=== PATIENT | male | born 1980 | race Caucasian/White ===

== ENCOUNTER 2018-06-02 22:28 | Emergency (ER) | payer MEDICAID ==
[~2018-06-02] VITALS: Ht 182.9 cm; Wt 83.9 kg
[2018-06-02 22:32] VITALS: BP_SYST 130
[2018-06-02] MEDS ORDERED: IBUPROFEN 800 MG TABLET PO ONE (23:00)
[2018-06-02 23:28] VITALS: BP_SYST 127
== END 2018-06-02 23:28 | disposition home or self-care (01) ==
LOC: SED 22:28
DX: S62.634A Displaced fracture of distal phalanx of right ring finger, initial encounter for closed fracture (principal); S62.614A Displaced fracture of proximal phalanx of right ring finger, initial encounter for closed fracture; J45.909 Unspecified asthma, uncomplicated; W21.01XA Struck by football, initial encounter; Y93.61 Activity, american tackle football; Y92.89 Other specified places as the place of occurrence of the external cause; Y99.8 Other external cause status
CPT/HCPCS: 73140-TC; 99284

== ENCOUNTER 2019-04-12 12:03 | Emergency (ER) | payer MEDICAID ==
[~2019-04-12] VITALS: Ht 182.9 cm; Wt 86.2 kg
[2019-04-12 12:16] VITALS: BP_SYST 127
[2019-04-12] MEDS ORDERED: MAG HYDROX/AL HYDROX/SIMETH 30 ML, BELLADONNA ALKALOIDS/PHENOBARB 10 ML, LIDOCAINE VISC... PO ONE ×3 (12:30)
[2019-04-12 12:32] LABS: BASOPHILS % (AUTO) 0.2 % (0.0-2.0); EOSINOPHILS # (AUTO) 0.5 K/uL (0.0-0.4); EOSINOPHILS % (AUTO) 9.3 % (0.0-4.0); HEMOGLOBIN 15.2 g/dL (14.0-18.0); LYMPHOCYTES # (AUTO) 1.5 K/uL (1.0-5.5); LYMPHOCYTES % (AUTO) 25.6 % (20.5-51.5); MEAN CORPUSCULAR HEMOGLOBIN 27 pg (27-31); MEAN CORPUSCULAR HGB CONC 34 % (32-36); MEAN CORPUSCULAR VOLUME 81 fL (79.0-98.0); MONOCYTES # (AUTO) 0.4 K/uL (0.0-1.0); MONOCYTES % (AUTO) 7.4 % (1.7-9.3); NEUTROPHILS # (AUTO) 3.3 K/uL (1.8-7.7); NEUTROPHILS % (AUTO) 57.5 % (40.0-70.0); PLATELET COUNT (AUTO) 189 K/uL (130-430); RED BLOOD CELL COUNT(AUTO) 5.54 MIL/uL (4.2-6.2); RED CELL DISTRIBUTION WIDTH 13.2 % (9.0-15.0); WHITE BLOOD COUNT (AUTO) 5.7 K/uL (4.8-10.8)
[2019-04-12 12:45] LABS: CALCIUM 9.6 mg/dL (8.4-11.0); CREATININE 0.72 mg/dL (0.55-1.30); POTASSIUM 3.8 mmol/L (3.5-5.1)
[2019-04-12 12:51] LABS: ALBUMIN 3.7 g/dL (3.4-4.8); TOTAL BILIRUBIN 0.5 mg/dL (0.0-1.0)
[2019-04-12] MEDS ORDERED: IOHEXOL 100 ML IV ONE (13:38)
[2019-04-12 13:46] LABS: BILIRUBIN,URINE NEGATIVE (NEGATIVE); BLOOD, URINE NEGATIVE (NEGATIVE); CLARITY/URINE CLEAR (CLEAR); COLOR,URINE YELLOW (YELLOW); GLUCOSE,URINE NEGATIVE (NEGATIVE); KETONES,URINE NEGATIVE (NEGATIVE); LEUKOCYTE ESTERASE ,URINE NEGATIVE (NEGATIVE); NITRITE, URINE NEGATIVE (NEGATIVE); PH,URINE 5.5 (5.0-8.0); PROTEIN URINE NEGATIVE (NEGATIVE); UROBILINOGEN,URINE 0.2 (0.2-1.0)
[2019-04-12 15:43] VITALS: BP_SYST 131
== END 2019-04-12 15:43 | disposition home or self-care (01) ==
LOC: SED 12:03
DX: K57.90 Diverticulosis of intestine, part unspecified, without perforation or abscess without bleeding (principal); K59.00 Constipation, unspecified; J45.909 Unspecified asthma, uncomplicated
CPT/HCPCS: 36415; 74021; 74177; 80053; 81003; 83690; 85025; 99284; J2001; Q9967

== ENCOUNTER 2019-09-15 20:02 | Emergency (ER) | payer MEDICAID ==
[~2019-09-15] VITALS: Ht 182.9 cm; Wt 86.2 kg
[2019-09-15 20:13] VITALS: BP_SYST 123
--- NOTE | 2019-09-15 20:30 | NUR ---
Patient to ER bed 5 for evaluation. Side rails up. Report given to Consuelo GILLILAND.
--- NOTE | 2019-09-15 20:40 | NUR ---
Patient AOx4, presents to ED via wheelchair for complaints of right groin pain since today @1400. Patient reports recent varicose vein surgery to right lower leg x1 week ago. Patient states site of pain began when patient was sitting. Patient reports pain as sharp. Medicated with Ibuprofen prior to arrival with minimal relief. No other symptoms or complaints.
[2019-09-15] MEDS ORDERED: POTASSIUM CHLORIDE 20 MEQ/PKT PACKET PO ONE (20:45)
--- NOTE | 2019-09-15 20:55 | NUR ---
Constance lozano in ED - 09/15/19 at 2159 by SDEDBK LAURA York at bedside for medication administration.
--- NOTE | 2019-09-15 20:55 | NUR ---
ER MD York at bedside for medical evaluation.
[2019-09-15] MEDS ORDERED: MORPHINE 4 MG/ML INJ. SYRINGE IM ONE (21:00)
[2019-09-15 21:27] LABS: BASOPHILS % (AUTO) 0.4 % (0.0-2.0); EOSINOPHILS # (AUTO) 0.5 K/uL (0.0-0.4); EOSINOPHILS % (AUTO) 8.4 % (0.0-4.0); HEMATOCRIT 39.2 % (36-54); HEMOGLOBIN 13.5 g/dL (14.0-18.0); LYMPHOCYTES # (AUTO) 2.3 K/uL (1.0-5.5); MEAN CORPUSCULAR HEMOGLOBIN 28 pg (27-31); MEAN CORPUSCULAR HGB CONC 34 % (32-36); MEAN CORPUSCULAR VOLUME 82 fL (79.0-98.0); MONOCYTES # (AUTO) 0.6 K/uL (0.0-1.0); MONOCYTES % (AUTO) 9.5 % (1.7-9.3); NEUTROPHILS % (AUTO) 46.7 % (40.0-70.0); PLATELET COUNT (AUTO) 156 K/uL (130-430); RED BLOOD CELL COUNT(AUTO) 4.79 MIL/uL (4.2-6.2); RED CELL DISTRIBUTION WIDTH 13.1 % (9.0-15.0); WHITE BLOOD COUNT (AUTO) 6.5 K/uL (4.8-10.8)
[2019-09-15 21:39] LABS: CALCIUM 8.5 mg/dL (8.4-11.0); POTASSIUM 3.6 mmol/L (3.5-5.1)
--- NOTE | 2019-09-15 22:00 | NUR ---
No adverse reactions noted after medication administration. Will continue to monitor.
[2019-09-15 23:06] LABS: BILIRUBIN,URINE NEGATIVE (NEGATIVE); BLOOD, URINE NEGATIVE (NEGATIVE); CLARITY/URINE CLEAR (CLEAR); COLOR,URINE YELLOW (YELLOW); GLUCOSE,URINE NEGATIVE (NEGATIVE); KETONES,URINE NEGATIVE (NEGATIVE); LEUKOCYTE ESTERASE ,URINE NEGATIVE (NEGATIVE); NITRITE, URINE NEGATIVE (NEGATIVE); PROTEIN URINE NEGATIVE (NEGATIVE); UROBILINOGEN,URINE 0.2 (0.2-1.0)
[2019-09-15 23:15] VITALS: BP_SYST 122
--- NOTE | 2019-09-15 23:15 | NUR ---
Patient given written and verbal discharge instructions and verbalizes understanding. ER MD discussed with patient the results and treatment provided. Patient in stable condition. ID arm band removed. No Rx given. Patient educated on pain management and to follow up with PMD. Pain Scale 2/10 tolerable to patient. Opportunity for questions provided and answered.
== END 2019-09-15 23:15 | disposition home or self-care (01) ==
LOC: SED 20:02
DX: S30.1XXA Contusion of abdominal wall, initial encounter (principal); J45.909 Unspecified asthma, uncomplicated; X58.XXXA Exposure to other specified factors, initial encounter; Y93.89 Activity, other specified; Y92.89 Other specified places as the place of occurrence of the external cause; Y99.8 Other external cause status
CPT/HCPCS: 36415; 76882; 80048; 81003; 85025; 93971; 96372; 99284; J2270

== ENCOUNTER 2021-03-05 09:29 | Emergency (ER) | payer MEDICAID ==
[~2021-03-05] VITALS: Ht 185.4 cm; Wt 86.2 kg
[2021-03-05 09:34] VITALS: BP_SYST 147
[2021-03-05 09:56] LABS: BASOPHILS % (AUTO) 0.4 % (0.0-2.0); EOSINOPHILS # (AUTO) 0.6 K/uL (0.0-0.4); EOSINOPHILS % (AUTO) 10.4 % (0.0-4.0); HEMATOCRIT 48.6 % (36-54); HEMOGLOBIN 16.1 g/dL (14.0-18.0); LYMPHOCYTES # (AUTO) 1.7 K/uL (1.0-5.5); LYMPHOCYTES % (AUTO) 30.7 % (20.5-51.5); MEAN CORPUSCULAR HEMOGLOBIN 28 pg (27-31); MEAN CORPUSCULAR HGB CONC 33 % (32-36); MEAN CORPUSCULAR VOLUME 84 fL (79.0-98.0); MONOCYTES # (AUTO) 0.4 K/uL (0.0-1.0); MONOCYTES % (AUTO) 8.1 % (1.7-9.3); NEUTROPHILS # (AUTO) 2.7 K/uL (1.8-7.7); NEUTROPHILS % (AUTO) 50.4 % (40.0-70.0); PLATELET COUNT (AUTO) 165 K/uL (130-430); RED BLOOD CELL COUNT(AUTO) 5.83 MIL/uL (4.2-6.2); RED CELL DISTRIBUTION WIDTH 13.2 % (9.0-15.0); WHITE BLOOD COUNT (AUTO) 5.4 K/uL (4.8-10.8)
[2021-03-05 10:06] LABS: ANION GAP 7 (5-15); CALCIUM 9.1 mg/dL (8.4-11.0); CHLORIDE 105 mmol/L (98-107); CREATININE 0.82 mg/dL (0.55-1.30); GLUCOSE 94 mg/dL (70-99); POTASSIUM 4.3 mmol/L (3.5-5.1); SODIUM SERUM 141 mmol/L (136-145); UREA NITROGEN, BLOOD 13 mg/dL (8-21)
[2021-03-05 10:10] LABS: GFR AFRICAN AMERICAN 134 mL/min (>90)
[2021-03-05 10:56] VITALS: BP_SYST 132
[2021-03-05] MEDS ORDERED: KETOROLAC TROMETHAMINE 30 MG VIAL IM ONE (11:15)
== END 2021-03-05 09:45 | disposition home or self-care (01) ==
LOC: SED 09:29
DX: R07.89 Other chest pain (principal)
CPT/HCPCS: 36415; 71045; 80048; 84484; 85025; 93005; 96372; 99285; J1885

== ENCOUNTER 2021-06-03 20:41 | Emergency (ER) | payer MEDICAID ==
[~2021-06-03] VITALS: Ht 182.9 cm; Wt 86.2 kg
[2021-06-03 20:46] VITALS: BP_SYST 142
[2021-06-03 21:32] LABS: CALCIUM 8.8 mg/dL (8.4-11.0); CREATININE 0.8 mg/dL (0.55-1.30); POTASSIUM 3.9 mmol/L (3.5-5.1)
[2021-06-03 21:38] LABS: ALBUMIN 3.6 g/dL (3.4-4.8); TOTAL BILIRUBIN 0.2 mg/dL (0.0-1.0)
[2021-06-03 21:39] LABS: BASOPHILS % (AUTO) 0.4 % (0.0-2.0); EOSINOPHILS # (AUTO) 0.6 K/uL (0.0-0.4); EOSINOPHILS % (AUTO) 8.8 % (0.0-4.0); HEMOGLOBIN 14.4 g/dL (14.0-18.0); LYMPHOCYTES # (AUTO) 1.9 K/uL (1.0-5.5); LYMPHOCYTES % (AUTO) 30.5 % (20.5-51.5); MEAN CORPUSCULAR HEMOGLOBIN 28 pg (27-31); MEAN CORPUSCULAR HGB CONC 34 % (32-36); MEAN CORPUSCULAR VOLUME 82 fL (79.0-98.0); MONOCYTES # (AUTO) 0.5 K/uL (0.0-1.0); MONOCYTES % (AUTO) 7.9 % (1.7-9.3); NEUTROPHILS # (AUTO) 3.3 K/uL (1.8-7.7); NEUTROPHILS % (AUTO) 52.4 % (40.0-70.0); PLATELET COUNT (AUTO) 170 K/uL (130-430); RED BLOOD CELL COUNT(AUTO) 5.12 MIL/uL (4.2-6.2); RED CELL DISTRIBUTION WIDTH 13.1 % (9.0-15.0); WHITE BLOOD COUNT (AUTO) 6.3 K/uL (4.8-10.8)
== END 2021-06-03 22:28 | disposition home or self-care (01) ==
LOC: SED 20:41
DX: R07.2 Precordial pain (principal); J45.909 Unspecified asthma, uncomplicated
CPT/HCPCS: 36415; 71045; 80053; 84484; 85025; 93005; 99285

== ENCOUNTER 2022-02-25 17:42 | Emergency (ER) | payer MEDICAID ==
[~2022-02-25] VITALS: Ht 182.9 cm; Wt 83.9 kg
--- NOTE | 2022-02-25 17:45 | NUR ---
Patient to ER bed 8 to gown for evaluation. Side rails up. Report given to ALICIA GILLILAND.
--- NOTE | 2022-02-25 17:45 | NUR ---
C/C CHEST PAIN RADIATING TO LEFT ARM WITH SOB X 2 DAYS. PATIENT DENIES ANY PREVIOUS CARDIAC COMPLICATIONS. PATIENT AOX4, PLACED INTO GOWN AND ON MONITOR.
--- NOTE | 2022-02-25 17:50 | NUR ---
EKG COMPLETED AT BEDSIDE.
--- NOTE | 2022-02-25 17:51 | NUR ---
EKG RESULTS GIVEN TO TO READ
[2022-02-25 17:53] VITALS: BP_SYST 136
--- NOTE | 2022-02-25 18:11 | NUR ---
LABS DRAWN AND SENT TO LAB
[2022-02-25] MEDS ORDERED: ASPIRIN 325 MG TABLET PO ONE (18:15)
[2022-02-25] MEDS ORDERED: NITROGLYCERIN 0.4 MG TAB.SUBL SL ONE (18:15)
[2022-02-25] MEDS ORDERED: ASPIRIN 81 MG TAB.CHEW PO ONE (18:15)
--- NOTE | 2022-02-25 18:22 | NUR ---
FIRST DOSE NITRO GIVEN SUBLINGUAL
--- NOTE | 2022-02-25 18:27 | NUR ---
SECOND DOSE OF NITRO GIVEN SUBLINGUAL
--- NOTE | 2022-02-25 18:28 | NUR ---
XRAY AT BEDSIDE
[2022-02-25 18:43] LABS: ANION GAP 5 (5-15); CALCIUM 9.3 mg/dL (8.4-11.0); CHLORIDE 102 mmol/L (98-107); CREATININE 0.76 mg/dL (0.55-1.30); GLUCOSE 86 mg/dL (70-99); POTASSIUM 4.1 mmol/L (3.5-5.1); SODIUM SERUM 136 mmol/L (136-145); UREA NITROGEN, BLOOD 15 mg/dL (8-21)
[2022-02-25 18:44] LABS: GFR AFRICAN AMERICAN 145 mL/min (>90)
[2022-02-25 18:47] LABS: BASOPHILS % (AUTO) 0.4 % (0.0-2.0); EOSINOPHILS # (AUTO) 0.7 K/uL (0.0-0.4); EOSINOPHILS % (AUTO) 10.9 % (0.0-4.0); HEMATOCRIT 44.1 % (36-54); HEMOGLOBIN 14.9 g/dL (14.0-18.0); LYMPHOCYTES # (AUTO) 1.6 K/uL (1.0-5.5); LYMPHOCYTES % (AUTO) 26.6 % (20.5-51.5); MEAN CORPUSCULAR HEMOGLOBIN 27 pg (27-31); MEAN CORPUSCULAR HGB CONC 34 % (32-36); MEAN CORPUSCULAR VOLUME 81 fL (79.0-98.0); MONOCYTES # (AUTO) 0.5 K/uL (0.0-1.0); MONOCYTES % (AUTO) 7.5 % (1.7-9.3); NEUTROPHILS # (AUTO) 3.3 K/uL (1.8-7.7); NEUTROPHILS % (AUTO) 54.6 % (40.0-70.0); PLATELET COUNT (AUTO) 172 K/uL (130-430); RED BLOOD CELL COUNT(AUTO) 5.47 MIL/uL (4.2-6.2); RED CELL DISTRIBUTION WIDTH 13.7 % (9.0-15.0); WHITE BLOOD COUNT (AUTO) 6.1 K/uL (4.8-10.8)
[2022-02-25 18:51] LABS: ALANINE AMINOTRANSFERASE 26 U/L (12-78); ASPARTATE AMINOTRANSFERASE 18 U/L (10-37)
--- NOTE | 2022-02-25 18:57 | NUR ---
MORPHINE GIVEN IVP ORDERED.
[2022-02-25] MEDS ORDERED: MORPHINE 4 MG INJ. 4 MG/ML VIAL IVP ONE (19:00)
[2022-02-25 19:07] LABS: TOTAL BILIRUBIN 0.4 mg/dL (0.0-1.0)
--- NOTE | 2022-02-25 19:45 | NUR ---
Pt received in stable cond. Resting comfortably in bed. No signs of acute distress. Denies any chest pain/discomfort at this time.
[2022-02-25] MEDS ORDERED: PRO40 PO (22:49)
[2022-02-25 23:21] VITALS: BP_SYST 124
== END 2022-02-25 23:21 | disposition home or self-care (01) ==
LOC: SED 17:42
DX: R07.9 Chest pain, unspecified (principal); J45.909 Unspecified asthma, uncomplicated
CPT/HCPCS: 36415; 71045; 80053; 83880; 84484; 85025; 85379; 93005; 96374; 99285; J2270